=== PATIENT | male | born 1990 | race African-American/Black ===

== ENCOUNTER 2021-03-22 02:43 | Emergency (ER) | payer MEDICAID ==
[~2021-03-22] VITALS: Ht 172.7 cm; Wt 72.0 kg
[2021-03-22 03:00] VITALS: BP 118/90
[2021-03-22] MEDS ORDERED: BACITRACIN ZINC OINT UDPKT TOP ONE (03:30)
[2021-03-22] MEDS ORDERED: TETANUS, DIPHTHERIA, PERTUSSIS VAC/PF 0.5ML (>7YR OLD) IM ONE (03:30)
[2021-03-22] MEDS ORDERED: LIDOCAINE HCL 1% 20ML VIAL (Pyxis) INJ INFIL ONE (04:15)
[2021-03-22] MEDS ORDERED: ACET-2708 MT (04:25)
== END 2021-03-22 04:55 | disposition home or self-care (01) ==
LOC: ER 02:43
DX: S01.21XA Laceration without foreign body of nose, initial encounter (principal); S21.111A Laceration without foreign body of right front wall of thorax without penetration into thoracic cavity, initial encounter; X99.8XXA Assault by other sharp object, initial encounter; Y04.0XXA Assault by unarmed brawl or fight, initial encounter; R03.0 Elevated blood-pressure reading, without diagnosis of hypertension; Y93.89 Activity, other specified; Y92.048 Other place in boarding-house as the place of occurrence of the external cause; Z23 Encounter for immunization
CPT/HCPCS: 12011; 90471; 90715; 99284; A4217; Z7610

== ENCOUNTER 2021-03-27 17:12 | Emergency (ER) | payer MEDICAID ==
[~2021-03-27] VITALS: Ht 172.7 cm; Wt 67.0 kg
[~2021-03-27 17:12] MED LIST: ACET-2708 MT
[2021-03-27 17:15] VITALS: BP 110/66
== END 2021-03-27 18:42 | disposition home or self-care (01) ==
LOC: ER 17:12
DX: Z48.02 Encounter for removal of sutures (principal)
CPT/HCPCS: 99281